=== PATIENT | female | born 1975 | race Caucasian/White ===

== ENCOUNTER 2022-09-28 19:45 | Inpatient (IN) | payer OTHER ==
[~2022-09-28] VITALS: Ht 160 cm; Wt 79.5 kg
[2022-09-28 20:54] LABS: BASOPHILS # (AUTO) 0.1 X10'3 (0-0.2); BASOPHILS % (AUTO) 1.7 % (0-1); EOSINOPHILS # (AUTO) 0.1 X10'3 (0-0.9); EOSINOPHILS % (AUTO) 1.1 % (0-6); HEMATOCRIT 36.8 % (35.0-45.0); HEMOGLOBIN 11.9 g/dl (12.0-16.0); LYMPHOCYTES # (AUTO) 3.1 X10'3 (1.1-4.8); LYMPHOCYTES % (AUTO) 52.3 % (21-51); MEAN CORPUSCULAR HEMOGLOBIN 29.9 PG (27.0-31.0); MEAN CORPUSCULAR HGB CONC 32.3 g/dL (33.0-36.5); MEAN CORPUSCULAR VOLUME 92.4 FL (78-98); MEAN PLATELET VOLUME 6.6 FL (7.4-10.4); MONOCYTES # (AUTO) 0.4 X10'3 (0-0.9); NEUTROPHILS # (AUTO) 2.2 X10'3 (1.8-7.7); NEUTROPHILS % (AUTO) 37.9 % (42-75); PLATELET COUNT 198 X10'3 (140-440); RED BLOOD COUNT 3.98 X10'6 (4.20-5.60); RED CELL DISTRIBUTION WIDTH 18.5 % (11.5-14.5); WHITE BLOOD COUNT 5.9 X10'3 (4.5-11.0)
[2022-09-28 21:19] LABS: ALANINE AMINOTRANSFERASE 31 U/L (12-78); ALBUMIN/GLOBULIN RATIO 0.8 (1.1-1.5); ALKALINE PHOSPHATASE 210 IU/L (46-116); ANION GAP 14 (8-16); ASPARTATE AMINO TRANSFERASE 36 U/L (10-37); BILIRUBIN,TOTAL 0.4 MG/DL (0.1-1.0); BLOOD UREA NITROGEN 11 MG/DL (7-18); BUN/CREATININE RATIO 9.2 (6.6-38.0); CALCIUM 8.5 MG/DL (8.5-10.1); CHLORIDE 99 MMOL/L (99-107); CREATININE 1.19 MG/DL (0.40-0.90); GLUCOSE 64 MG/DL (70-104); POTASSIUM 4.4 MMOL/L (3.5-5.1); SODIUM 136 MMOL/L (135-145); TOTAL CARBON DIOXIDE 22.8 MMOL/L (24-32); TOTAL PROTEIN 6.8 G/DL (6.4-8.2); eGFR 48 ML/MIN
[2022-09-28 21:20] LABS: ETHANOL 0.398 GM/DL (0.0-0.010)
[2022-09-28 22:21] LABS: ANISOCYTOSIS 2+; PLATELET ESTIMATE NORMAL; TOTAL CELLS COUNTED 100
[2022-09-29] MEDS ORDERED: dextrose 50%-water 50ml dispensing syringe IV STA (01:23)
[2022-09-29] MEDS ORDERED: normal saline 1000ml 1,000 ML IV ONE ×2 (01:25→09:00)
--- NOTE | 2022-09-29 03:57 | NUR ---
attempted to obtain ua. unsuccessful. will attempt again later.
[2022-09-29 04:26] LABS: CLARITY,URINE CLEAR (Clear); COLOR,URINE YELLOW (Yellow); GLUCOSE, URINE NEGATIVE (Neg); KETONES,URINE NEGATIVE (Neg); LEUKOCYTE ESTERASE ,URINE SMALL (Neg); NITRITES, URINE NEGATIVE (Neg); OCCULT BLOOD,URINE TRACE-INTACT (Neg); PROTEIN,URINE NEGATIVE (Neg); UA COLLECTION TYPE VOIDED; UROBILINOGEN,URINE 0.2 E.U/dL (0.2-1.0)
[2022-09-29 04:35] LABS: BACTERIA,URINE FEW /HPF (Neg); MUCUS STRANDS MODERATE /LPF (Neg); RBC,URINE 0-2 /HPF (0-2); SQUAMOUS EPITHELIAL CELL,UR MANY /LPF (FEW); WBC,URINE 0-4 /HPF (0-4)
[2022-09-29 04:36] LABS: TRANSITIONAL EPI CELLS,URINE FEW /HPF
[2022-09-29] MEDS ORDERED: levoFLOXACIN-Levaquin 750MG/D5 150 ML IV STA (05:19)
[2022-09-29] MEDS ORDERED: nitrofuran monohydrate/nitrofuran macrocrysal 100 MG (MacroBID) capsule PO ONE (05:20)
[2022-09-29 05:41] LABS: ABG BASE EXCESS -2.8 mmol/L (-2.0-2.0); ABG HCO3 21.7 mmol/L (22.0-26.0); ABG OXYGEN SATURATION 95.4 % (94-97); ABG PCO2 (T) 36.4 mmHg (32.0-45.0); ABG PO2 (T) 89.5 mmHg (75.0-100.0); FCOHb 0.6 % (0.0-3.9); FO2Hb 94.8 % (94-97); TOTAL HEMOGLOBIN 11.5 G/dl (12.0-16.0)
[2022-09-29] MEDS ORDERED: folic acid 1mg/0.2ml inj IV SCH (08:00)
[2022-09-29] MEDS ORDERED: multivitamins, therapeutics tablet PO SCH (08:00)
--- NOTE | 2022-09-29 08:34 | NUR ---
pt flagged me down and states that her blood sugar is dropping and requests some juice. I am unable to find any juice in the department (dietary notified) - pts FSBG is 72 and she is given kobi crackers. primary RN aware. pt reports she has a dexcom CGM and just prior it was reading 90 and dropping.
[2022-09-29] MEDS: thiamine 100mg/ml 2ml inj. IV SCH ×2 (08:40→14:20)
[2022-09-29 08:54] LABS: LIPASE < 50 U/L (73-393); MAGNESIUM 1.5 MG/DL (1.5-2.4)
[2022-09-29] MEDS ORDERED: chlordiazePOXIDE 25mg capsule PO ONE (08:55)
[2022-09-29 11:32] LABS: URINE AMPHETAMINE SCREEN NEGATIVE (Neg); URINE BARBITUATE SCREEN NEGATIVE (Neg); URINE BENZODIAZEPINES SCREEN NEGATIVE (Neg); URINE CANNABINOID SCREEN NEGATIVE (Neg); URINE COCAINE SCREEN NEGATIVE (Neg); URINE METHADONE SCREEN NEGATIVE (Neg); URINE OPIATE SCREEN NEGATIVE (Neg); URINE PHENCYCLIDINE SCREEN NEGATIVE (Neg)
[2022-09-29] MEDS ORDERED: BENAZEPRIL PO (11:43)
[2022-09-29] MEDS ORDERED: LIPITOR PO (11:43)
[2022-09-29] MEDS ORDERED: FOLIC ACID PO (11:43)
[2022-09-29] MEDS ORDERED: BUPROPION PO (11:43)
[2022-09-29] MEDS ORDERED: LORAZEPAM PO (11:43)
[2022-09-29] MEDS ORDERED: LEVOTHYROXINE PO (11:43)
[2022-09-29] MEDS ORDERED: CARVEDILOL PO (11:43)
[2022-09-29] MEDS ORDERED: HUMALOG SQ (11:43)
[2022-09-29] MEDS ORDERED: LORazepam 2 mg/ml vial IV PRN (13:30)
[2022-09-29] MEDS ORDERED: PERFLUTREN PROTEIN-A MICROSPHR (Optison) 0.22 MG/ML 3ML VIAL IV ONE (13:30)
[2022-09-29] MEDS ORDERED: normal saline 1000ml 1,000 ML IV SCH (13:30)
[2022-09-29] MEDS ORDERED: HYDROcodone/acetaminophen 10/325mg tab PO PRN (13:30)
[2022-09-29] MEDS ORDERED: DEXTROSE 15 GM of carb/4 tabs (each vial/BOTTLE has 4 tablets) PO PRN ×2 (13:30)
[2022-09-29] MEDS ORDERED: ondansetron/PF 4mg/2ml inj IV PRN (13:30)
[2022-09-29] MEDS ORDERED: insulin Lispro (HumaLOG) vial - multi-dose SQ SCH (13:30)
[2022-09-29] MEDS ORDERED: dextrose 50%-water 50ml dispensing syringe IV PRN ×3 (13:30)
[2022-09-29] MEDS ORDERED: HYDROcodone/acetaminophen 5mg/325mg tablet PO PRN (13:30)
[2022-09-29] MEDS ORDERED: acetaminophen 325mg tablet PO PRN ×2 (13:30)
[2022-09-29] MEDS ORDERED: CefTRIAXone/D5W-Rocephin 1gm 50 ML IV SCH (13:30)
[2022-09-29] MEDS ORDERED: morphine 2 MG/ML inj. syringe IV PRN ×2 (13:30)
[2022-09-29] MEDS ORDERED: magnesium Cl slow-release 64mg tablet PO PRN (13:30)
[2022-09-29] MEDS ORDERED: potassium Cl 20 mEq SR tablet PO PRN ×2 (13:30)
[2022-09-29] MEDS ORDERED: haloperidol 5mg tablet PO PRN (13:30)
[2022-09-29] MEDS ORDERED: MESSAGE TO PHARMACY PO ONE (13:30)
[2022-09-29] MEDS ORDERED: diphenhydrAMINE 25mg capsule PO PRN (13:30)
[2022-09-29] MEDS ORDERED: potassium Cl 40MEQ/1/2NS 520ml 520 ML IV PRN (13:30)
[2022-09-29] MEDS ORDERED: acetaminophen 650mg rectal suppository RC PRN (13:30)
[2022-09-29] MEDS ORDERED: magnesium hydroxide 30ml (MOM) UD suspension PO PRN (13:30)
[2022-09-29] MEDS ORDERED: bisacodyl 10mg suppository rectal RC PRN (13:30)
[2022-09-29] MEDS ORDERED: mag hydrox/Alum hydrox/simeth 30ml oral suspension PO PRN (13:30)
[2022-09-29] MEDS ORDERED: glucagon, human recombinant 1mg kit SUBCUT PRN (13:30)
[2022-09-29] MEDS ORDERED: haloperidol lactate 5mg/ml inj IM PRN (13:30)
[2022-09-29] MEDS ORDERED: magnesium 4gm in 100ml NS 100 ML IV PRN (13:30)
[2022-09-29] MEDS ORDERED: pantoprazole 40mg Tablet.DR PO SCH (16:30)
[2022-09-29] MEDS ORDERED: lisinopril 20mg tablet PO SCH (16:30)
[2022-09-29] MEDS ORDERED: hydrALAZINE 20mg/ml inj. IV PRN (16:30)
[2022-09-29] MEDS ORDERED: hydrALAZINE 20mg/ml inj. IV ONE (16:30)
[2022-09-29] MEDS ORDERED: iohexol 300mg/ml 100ml inj. ONE (16:38)
[2022-09-29 18:00] VITALS: BP_DIAS 105
[2022-09-29 18:20] VITALS: BP_SYST 160
[2022-09-29] MEDS: carVEDilol 12.5mg tablet PO SCH ×2 (18:20→20:00)
--- NOTE | 2022-09-29 19:59 | NUR ---
PT PLACED ONTO INPATIENT BED WITH NO VERBAL COMPLAINTS.
[2022-09-29] MEDS ORDERED: docusate sod 100mg capsule PO SCH (20:00)
[2022-09-29] MEDS ORDERED: heparin, porcine 5000 units/ml vial SQ SCH (20:00)
[2022-09-29] MEDS ORDERED: K and/or MAG REPLACEMENT MC SCH (20:00)
[2022-09-29] MEDS ORDERED: thiamine 100mg/ml 2ml inj. IV SCH (21:00)
[2022-09-29] MEDS ORDERED: insulin glargine (Lantus) pen - multi-dose SQ SCH (21:00)
--- NOTE | 2022-09-29 21:23 | NUR ---
PT REFUSED LATUS PT STATES SHE IS ON AN INSULIN PUMP
--- NOTE | 2022-09-30 00:29 | NUR ---
PT REQUESTED TO [facility]. PAGED [facility] PAPER SIGNED BY PT & IV DC'D PT LEAVING
[2022-09-30] MEDS ORDERED: folic acid 1mg/0.2ml inj IV SCH (08:00)
--- NOTE | 2022-09-30 10:45 | NUR ---
Received order for consult for ETOH. Patient discharged before I could see her in hospital. I will call patient to follow up.
[2022-10-01] MEDS ORDERED: LORazepam 1 MG tablet PO PRN (13:30)
[2022-10-01] MEDS ORDERED: LORazepam 2 mg/ml vial IV PRN (13:30)
[2022-10-02] MEDS ORDERED: folic acid 1mg tablet PO SCH (08:00)
[2022-10-02] MEDS ORDERED: thiamine 100mg tablet PO SCH (08:00)
[2022-10-03] MEDS ORDERED: LORazepam 2 mg/ml vial IV PRN (13:30)
[2022-10-03] MEDS ORDERED: LORazepam 1 MG tablet PO PRN (13:30)
== END 2022-09-30 00:23 | disposition left against medical advice (07) | DRG 683 ==
LOC: ER 19:46 → ED HOLD 09-29 13:36
PROVIDERS: ADMIT Family Medicine; ATTEND Family Medicine
PROC: BW211ZZ Computerized Tomography (CT Scan) of Abdomen and Pelvis using Low Osmolar Contrast (ICD-10-PCS; principal; 2022-09-29)
DX: N17.9 Acute kidney failure, unspecified (principal); E87.20 Acidosis, unspecified; N39.0 Urinary tract infection, site not specified; I16.0 Hypertensive urgency; E03.9 Hypothyroidism, unspecified; Z20.822 Contact with and (suspected) exposure to COVID-19; E10.9 Type 1 diabetes mellitus without complications; D64.9 Anemia, unspecified; F10.229 Alcohol dependence with intoxication, unspecified; Z53.29 Procedure and treatment not carried out because of patient's decision for other reasons; I10 Essential (primary) hypertension; Z96.41 Presence of insulin pump (external) (internal); Z79.4 Long term (current) use of insulin; Z82.3 Family history of stroke; Z82.49 Family history of ischemic heart disease and other diseases of the circulatory system; Z88.0 Allergy status to penicillin; Z88.2 Allergy status to sulfonamides
CPT/HCPCS: 36415; 36600; 74177; 80053; 80305; 80320; 81001; 82803; 82948; 83036; 83605; 83690; 83735; 84145; 84443; 85007; 85018; 85025; 87040; 87502; 87503; 87811; 93306; 96361; 96365; 96375; 99285; G0378; J0696; J1644; J1815; J1956; J2060; J3411; J3490; J7030; Q9967

== ENCOUNTER 2023-07-24 01:03 | Emergency (ER) | payer OTHER ==
[~2023-07-24] VITALS: Ht 160 cm; Wt 75.0 kg
[~2023-07-24 01:03] MED LIST: ATOR40TA7 PO; BUPR-344 PO; CARV25TA2 PO; HUMALOG SQ; LEVO50CA4 PO; LORA-269 PO; THIA100T70 PO
[2023-07-24 01:09] VITALS: TEMP 96
[2023-07-24 02:52] VITALS: BP 124/82; PULSE 109; RESP 16; O2SAT 100
[2023-07-24 03:01] LABS: BASOPHILS # (AUTO) 0.2 X10'3 (0-0.2); BASOPHILS % (AUTO) 1.8 % (0-1); EOSINOPHILS # (AUTO) 0.1 X10'3 (0-0.9); EOSINOPHILS % (AUTO) 1.1 % (0-6); HEMATOCRIT 33.9 % (35.0-45.0); HEMOGLOBIN 11.4 g/dl (12.0-16.0); LYMPHOCYTES # (AUTO) 3.3 X10'3 (1.1-4.8); LYMPHOCYTES % (AUTO) 34.2 % (21-51); MEAN CORPUSCULAR HEMOGLOBIN 34.4 PG (27.0-31.0); MEAN CORPUSCULAR HGB CONC 33.6 g/dL (33.0-36.5); MEAN CORPUSCULAR VOLUME 102.2 FL (78-98); MEAN PLATELET VOLUME 8.1 FL (7.4-10.4); MONOCYTES # (AUTO) 0.6 X10'3 (0-0.9); MONOCYTES % (AUTO) 6.5 % (2-12); NEUTROPHILS # (AUTO) 5.5 X10'3 (1.8-7.7); NEUTROPHILS % (AUTO) 56.4 % (42-75); PLATELET COUNT 205 X10'3 (140-440); RED BLOOD COUNT 3.32 X10'6 (4.20-5.60); RED CELL DISTRIBUTION WIDTH 16.4 % (11.5-14.5); WHITE BLOOD COUNT 9.8 X10'3 (4.5-11.0)
[2023-07-24 03:10] LABS: ALANINE AMINOTRANSFERASE 39 U/L (12-78); ALBUMIN/GLOBULIN RATIO 0.6 (1.1-1.5); ALKALINE PHOSPHATASE 188 IU/L (46-116); ANION GAP 10 (8-16); ASPARTATE AMINO TRANSFERASE 81 U/L (10-37); BILIRUBIN,TOTAL 1.2 MG/DL (0.1-1.0); BLOOD UREA NITROGEN 4 MG/DL (7-18); BUN/CREATININE RATIO 3.5 (10.0-20.0); C-REACTIVE PROTEIN 0.45 MG/DL (0.0-0.5); CHLORIDE 102 MMOL/L (99-107); CREATININE 1.14 MG/DL (0.40-0.90); GLUCOSE 218 MG/DL (70-104); SODIUM 135 MMOL/L (135-145); TOTAL CARBON DIOXIDE 23.4 MMOL/L (24-32); TOTAL PROTEIN 5.6 G/DL (6.4-8.2); eCRCL 49 ML/MIN; eGFR 50 ML/MIN
[2023-07-24] MEDS ORDERED: CLOB15CR11 TOP (05:05)
[2023-07-24] MEDS ORDERED: triamcinolone acetonide 40mg/ml inj IM ONE (05:10)
== END 2023-07-24 05:18 | disposition home or self-care (01) ==
LOC: ER 01:04
DX: R21 Rash and other nonspecific skin eruption (principal); E78.00 Pure hypercholesterolemia, unspecified; I10 Essential (primary) hypertension; E11.9 Type 2 diabetes mellitus without complications; Z88.0 Allergy status to penicillin; Z88.2 Allergy status to sulfonamides; Z79.899 Other long term (current) drug therapy
CPT/HCPCS: 80053; 85025; 85651; 86140; 96372; 99284; J3301